=== PATIENT | female | born 1990 | race Caucasian/White ===

== ENCOUNTER → 2020-08-16 | Outpatient (CLI) | payer OTHER ==
[~2020-08-16] MED LIST: COLACE 100MG C100 MG PO
== END ==
LOC: KOH-I 14:09
DX: M79.672 Pain in left foot (principal); M25.775 Osteophyte, left foot
CPT/HCPCS: 73630

== ENCOUNTER → 2020-09-09 | Outpatient (CLI) | payer OTHER | LOC: KOH-I 08-31 14:30 | DX: S63.43 Traumatic rupture of volar plate of finger at metacarpophalangeal and interphalangeal joint (principal); D36.10 Benign neoplasm of peripheral nerves and autonomic nervous system, unspecified | CPT/HCPCS: 73718 ==